=== PATIENT | male | born 1945 | race Caucasian/White ===

== ENCOUNTER 2019-09-06 | Day surgery (SDC) | payer MEDICARE, OTHER ==
[~2019-09-06] MED LIST: ALLERGY RE50 MCG/ACT; ALLOPURINOL100 MG PO; AMITRIPTYLIN10 MG PO; AMOXICILLIN/CL875 MG OR; AMOXICILLIN/PO500 MG PO; ASPIRIN LOW81 M1 PO; CALCIUM600 M1 PO; CARDIZEM CD 180 PO; DILTIAZEM180 M1 PO; DILTIAZEM240 M1 OR; DIOVAN160 MG PO; DYMISTA1 SPR; FAMOTIDINE20 M1 PO; FENOFIBRATE134 MG PO; FISH OIL1000 MG PO; FISH OIL1200 M1 PO; FLONASE NASAL50 MCG; HYDROCHLOROT12.5 MG PO; LISINOPRIL10 MG PO; LOPID600 MG PO; LYRICA50 MG; MEDDOSEPAK OR; METOPROL TAR25 MG PO; MONTELUKAST SOD10 MG PO; MULTI VIT PO; NAPROSYN500 MG PO; PRILOSEC20 MG PO; PROBIOTIC1 TAB PO; PROSCAR PO; RESTASIS0.05 % OP; SEPTRA DS1 TAB PO; SYNTHROID75 MCG PO; TAMSULOSIN0.4 MG PO; TRICOR145 MG PO; UROXATRAL10 MG PO; VITAMIN D32000 UNIT PO; ZOCOR20 MG PO; [UNRECOGNIZED DRUG - OTHER] EX
[2019-09-06] MEDS ORDERED: PERCOCET1 TA4 PO (09:49)
== END 2019-09-06 10:30 | disposition home or self-care (01) ==
PROC: 0TBC8ZZ Excision of Bladder Neck, Via Natural or Artificial Opening Endoscopic (ICD-10-PCS; principal; 2019-09-06)
DX: N32.0 Bladder-neck obstruction (principal); I10 Essential (primary) hypertension; E78.5 Hyperlipidemia, unspecified; E03.9 Hypothyroidism, unspecified

== ENCOUNTER 2020-08-10 09:45 | Inpatient (IN) | payer MEDICARE, OTHER ==
[2020-08-10] VITALS (8 sets, daily range): BP systolic 161–189; BP diastolic 81–98
[~2020-08-10] VITALS: Ht 180.3 cm; Wt 121.3 kg
[~2020-08-10 09:45] MED LIST changes: +BENICAR20 MG PO; +CRESTOR5 MG PO; +PERCOCET1 TA4 PO
--- NOTE | 2020-08-10 15:45 | NUR ---
PT ARRIVED TO [facility] ROOM 277 VIA BED AT 1541 WITH OR STAFF; DROWSY AND OREINTED X 3; IN STABLE CONDITION. C/O 8/10 LEFT KNEE PAIN AND MILD NAUSEA. RESPIRATIONS EVEN AND UNLABORED ON ROOM AIR. SKIN IS FLUSHED AND MOIST. LACTATED RINGERS INFUSING UPON ARRIVAL INTO 20G IN RIGHT HAND; IV SITE APPEARS HEALTHY. SURGICAL DRESSING WITH NORMA WRAP TO LEFT KNEE IS CDI; ICE APPLIED. SCD INTACT TO RLE. IS AT BEDSIDE. ORIENTED TO ROOM AND CALL LIGHT SYSTEM. PLAN OF CARE DISCUSSED. PT ENCOURAGED TO VERBALIZE CONCERNS. SAFETY MEASURES IN PLACE. CALL LIGHT WITHIN REACH.
--- NOTE | 2020-08-10 16:53 | NUR ---
CARMENCITA DAILEY AT BEDSIDE FOR EVAL. AWARE OF ELEVATED BLOOD PRESSURE AND TROUBLE STARTING URINARY STREAM; PT REPOSITIONED.
--- NOTE | 2020-08-10 17:12 | NUR ---
PATIENT MEDICATED FOR PAIN AT THIS TIME PATIENT STATES HIS PAIN LEVEL IS A 8 OUT OF 0-10 PAIN SCALE. PATIENT GIVEN OXYCODONE 10/325MG AT THIS TIME.
--- NOTE | 2020-08-10 20:00 | NUR ---
PATIENT RESTING IN BED AT THIS TIME WITH HOB SLIGHTLY ELEVATED. PATIENT IS AWAKE ALERT AND ORIENTEDX3. PATIENT WITH ELEVATED BP AND C/O POST0-OP PAIN. MEDICATED WITH DILAUDID 1MG IVP FOR PAIN. IVF LR PATENT AND INFUSING VIA RIGHT WRIST SITE. DRESSING TO LEFT KNEE INTACT AND SECURED WITH NORMA WRAP. CMS TO LEFT TOES WNL. ICE PACK TO LEFT KNEE ON AND OFF INSTRUCTED-20MIN ON 20 MIN OFF. PATIENT VOIDED 200 CC OF YELLOW URINE IN URINAL AT BEDSIDE. INSTRUCTED ON U SE OF IS Q1H WHILE AWAKE. WILL REINFORCE. PATIENT WITH SMALL EMESIS OF CLEAR FLUID-MEDICATED WITH ZOFRAN FOR VOMITTING. SAFETY PRECAUTIONS REINFORCED. CALL LIGHT IN REACH. WILL CONT TO MONITOR.
--- NOTE | 2020-08-10 22:15 | NUR ---
PATIENT RESTING IN BED AT THIS TIME-AWAKE ALERT AND ORIENTEDX3. IVF LR PATENT AND INFUSING AT 100CC/HR VIA RIGHT WRIST. JUST PRIOR TO ADMINISTRATION OF HS MEDSPATIENT VOMITTED 100CC OF BRIGHT RED BLOOD WITH SOME SMALL CLOTS NOTED. MEDICATION WERE HELD AND DR. GRIFFIN WAS CALLED REGUARDING THIS EPISODE. NEW ORDERS WERE RECIEVED AND PATIENT WAS MADE NPO. STAT H&H WAS DRAWN. SPEC WAS SENT TO LAB AND WAS POSITIVE FOR BLOOD. PATIENT WAS MEDICATED WITH DILAUDID 1MG IVP FOR POST-OP PAIN. PATIENT TO BE STARTED ON PROTONIX GTT SOON PROFILED ON EMAR. PATIENT NOTIFIED OF CHANGES IN TREATMENT AND NEW ORDERS. CALL LIGHT IN REACH. WILL CONT TO MONITOR.
[2020-08-10 22:23] LABS: HEMATOCRIT 38.3 % (39.0-50.0); HEMOGLOBIN 13.6 g/dl (14.0-18.0)
[2020-08-11] VITALS (12 sets, daily range): BP systolic 96–155; BP diastolic 43–85
--- NOTE | 2020-08-11 | NUR ---
PATIENT IS HAVING DIFFICULTY WITH VOIDING AT THIS TIME. BLADDER SCAN WAS DONE AND WAS 766CC. ATTEMPTED TO INSERT #16 LITHUANIAN JOHN CATH BUT MET RESISTANCE EVEN THOUGH THERE WAS A SMALL AMT OF CALEB URINE THAT DID DRAIN, WHEN ATTEMPTED TO INFLATE THE BALLON THE PATIENT HAD SEVERE PAIN AND THE CATH WAS REMOVED-DRAINED 100CC OF CALEB URINE. ATTEMPT WAS MADE BY JASON CASTILLO TO INSERT #16 LITHUANIAN JOHN CATH AND ALSO MET RESISTANCE AND HAD PAIN WHEN ATTEMPTED TO INFLATE THE BALLON. DRAINED AN ADDITIONAL 250CC OF URINE FOR TOTAL OUTPUT OF 350CC AT THIS TIME. NO FURTHER VOMITTING AT THIS TIME. CALL LIGHT IN REACH. WILL CONT TO MONITOR.
[2020-08-11 04:17] LABS: HEMATOCRIT 33.3 % (39.0-50.0); HEMOGLOBIN 11.7 g/dl (14.0-18.0)
--- NOTE | 2020-08-11 04:30 | NUR ---
CALLED TO PATIENT ROOM AFTER RESPONDING TO CALL LIGHT. PATIENT VOMITTING AGAIN BRIGHT RED BLOOD WITH SOME SMALL CLOTS NOTED-200CC. LAB HERE AND STAT 0400 H&H DRAWN. PATIENT WAS MEDICATED FOR VOMITTING WITH ZOFRAN. H&H RESULTS-11.7/33.3-DROP SINCE [address] GRIFFIN CALLED AND NEW ORDERES RECIEVED. PATIENT TYPE AND SCREENED FOR 2UNITS OF PRBC'S. ON HOLD FOR NOW. REPEAT H&H FOR 629. CONSULT CALLED TO DR. FUCHS-PLAN FOR ENDOSCOPY [place] [place] [facility] NOTIFIED OF UPCOMING PROCEDURE THIS MORNING. PATIENT MADE AWARE OF UPCOMING PLANS. CALL LIGHT IN REACH. WILL CONT TO MONITOR.
--- NOTE | 2020-08-11 06:02 | NUR ---
ANTIBIOTIC THERAPY COMPLETE AT THIS TIME. IV FLUSHED W/NS, SITE APPEARS HEALTHY TO LAC. PT DENIES ANY OTHER NEEDS.
--- NOTE | 2020-08-11 06:11 | NUR ---
#16 CONGOLESE COUDE INSERTED BY JASON CASTILLO WITH SOME RESISTANCE DRAINING YELLOW URINE-450CC OF URINE EMPTIED PATIENT RESTING IN BED. SALINE LOCK TO LEFT AC INTACT. IVF LR PATENT AND INFUSING VIA RIGHT WRIST. PROTONIX GTT INFUSING VIA RIGHT WRIST SITE AT 10CC/HR. DRESSING TO LEFT KNEE INTACT SECURED WITH NORMA WRAP. SCD TO RIGHT LEG INTACT. SAFETY PRECAUTIONS REINFORCED. CALL LIGHT IN REACH. WILL CONT TO MONITOR. AWAITING GI PROCEDURTE THIS MORNING,
[2020-08-11 06:44] LABS: HEMATOCRIT 30.8 % (39.0-50.0); HEMOGLOBIN 10.8 g/dl (14.0-18.0)
[2020-08-11 09:07] LABS: HEMATOCRIT 28.9 % (39.0-50.0); HEMOGLOBIN 10.1 g/dl (14.0-18.0)
--- NOTE | 2020-08-11 09:45 | NUR ---
PATIENT RETURNED FROM SURGERY AT THIS TIME. PAITENT ALERT AND ORINETED X 3 PAITENT STATES PAIN LEVEL IS A 3 PATIENT IS ONE DAY POST OP OF L KNEE DRESSING DRY AND INTACT AT THIS TIME. PATIENT RETURNED FROM OPERATING ROOM FOR EDG. OR NURSE LIANG STATED THAT PATIENT WAS GIVEN ZOFRAN FOR NAUSEA AND PATIENT STATES NAUESA IS CAUSED BY POST NASAL DRIP. PATIENT ENCOURAGE TO LEAVE HEAD OF BED UP AND CALL OUT IF HE WERE TO HAVE ANY VOMITING OF BLOOD.
--- NOTE | 2020-08-11 11:30 | NUR ---
PER ASIM SLOAN APRN HOLD ON TRANFUSION OF BLOOD AT THIS TIME. WILL CONTINUE TO MONITOR.
--- NOTE | 2020-08-11 14:00 | NUR ---
PATIENT IV FOUND DISLODGED AT THIS TIME. IV CATH TIP INTACT AND SITE CLEANED AND 2X2 AND TAPE APPLIED AT THIS TIME. PATIENT HAS IV SITE IN LEFT AC AT THIS TIME.
[2020-08-11 15:25] LABS: HEMATOCRIT 26.4 % (39.0-50.0); HEMOGLOBIN 9.3 g/dl (14.0-18.0)
--- NOTE | 2020-08-11 15:29 | NUR ---
PATIENT MEDICATED AT THIS TIME WITH PERCOCET 10/325MG FOR PAIN IN L KNEE AND STATED PAIN IS 6 OUT OF A PAIN SCALE OF 0-10. PATIENT REPOSITIONED AT THIS TIME. ICE APPLIED TO L KNEE.
--- NOTE | 2020-08-11 16:13 | NUR ---
PATIENT RESTING IN BED AT THIS TIME DENIES ANY NEEDS AT THIS TIME. JOHN IS PATENT AND DRAINING CALEB COLOR URINE. PTIENT L KNEE ELEVATED AT THIS TIME SCD'S IN PLACE CALL LIGHT WITHIN REACH.
--- NOTE | 2020-08-11 20:00 | NUR ---
PATIENT RESTING IN BED AT THIS TIME-AWAKE ALERT AND ORIENTEDX3. PATIENT WITH O2 VIA NASAL CANNULA IN PLACE. IVF LR PATENT AND INFUSING VIA LEFT AC SITE AT 100CC/HR-SITE IS HEALTHY AT TH IS TIME. JOHN CATH PATENT AND DRAINING CALEB URINE. ENCOURAGED USE OF IS AND PATIENT IS ABLE TO DEMONSTRATE PROPER USE OF THE DEVICE. SCD TO RLE IN PLACE. DRESSING TO LEFT KNEE INTACT AND SECURED WITH NORMA WRAP. PATIENT IS USING ICE PACKS ON AND OFF TO LEFT KNEE. PATIENT WITH NO COMPLAINTS AT THIS TIME. SAFETY PRECAUTIONS REINFORCED. CALL LIGHT IN REACH. WILL CONT TO MONITOR.
[2020-08-11 20:56] LABS: HEMATOCRIT 26.5 % (39.0-50.0); HEMOGLOBIN 9.3 g/dl (14.0-18.0)
--- NOTE | 2020-08-11 22:00 | NUR ---
H&H FROM 21OO UNCHANGED FROM EARLIER AT 9.3. PATIENT MEDICATED FOR POST-OP PAIN WITH DILAUDID 1MG IVP FOR PAIN. PATIENT TOOK HS MEDS WITH SIP OF H20 WITHOUT ANY DIFFICULTY. NO COMPLAINTS OF NAUSEA AT THIS TIME. PATIENT WITH HOME C[facility] AT [facility] FOR USE TONIGHT WHEN SLEEPING. CALL LIGHT IN REACH. WILL CONT TO MONITOR.
--- NOTE | 2020-08-11 23:35 | NUR ---
PATIENT RESTING IN BED-STILL WITH POST-OP PAIN TO LEFT KNEE. PATIENT MEDICATED WITH PERCOCET TABS 2 FOR LEFT KNEE PAIN. C-PAP IN USE. JOHN PATENT AND DRAINING CALEB URINE. IVF PATENT AND INFUSING VIA LEFT AC SITE AT 100CC/HR. CALL LIGHT IN REACH. WILL CONT TO MONITOR.
[2020-08-12] VITALS (9 sets, daily range): BP systolic 113–156; BP diastolic 64–77
--- NOTE | 2020-08-12 00:30 | NUR ---
PATIENT APPEARS SLEEPING AT THIS TIME WITH HOB SLIGHTLY ELEVATED AND C-PAP IN PLACE. RESP ARE EVEN AND UNLABORED AT THIS TIME. IVF LR PATENT AND INFUSING VIA LEFT AC IV SITE AT 100CCHR. SITE IS HEALTHY. JOHN CATH PATENT AND DRAINING CALEB URINE. LEFT KNEE DRESSING INTACT AND SECURED WITH NORMA WRAP. USING ICE PACK TO LEFT KNEE ORDERED ON AND OFF. SCD TO RLE IN PLACE. CALL LIGHT IN REACH. WILL CONT TO MONITOR.
[2020-08-12 03:04] LABS: HEMATOCRIT 23.9 % (39.0-50.0); HEMOGLOBIN 8.3 g/dl (14.0-18.0)
--- NOTE | 2020-08-12 07:22 | NUR ---
RECIEVED CALL FROM DR. STODDARD STATING THAT HE WANTED PATIENT TO BE NPO FOR NOW UNTIL AFTER 0900 H&H RESULTS WERE BACK IN CASE HE MOIGHT HAVE TO RESCOPE THE PATIENT IN ENDO. ONCOMING NURSE MAREK CASTILLO IS AWARE AND ORDER WAS PLACED. WILL CONT TO MONITOR.
--- NOTE | 2020-08-12 07:25 | NUR ---
PATIENT IN BED AT THIS TIME DENIES ANY NEEDS STATES HIS PIAN IN A 3 OUT OF A SCALE OF 0-10 PATIENT STATES HE NEEDS NO PAIN MEDICATION AT THIS TIME. SIDERAILS ARE UP CALL LIGHT WITHIN REACH L KNEE DRESSING DRY AND INTACT AT THIS TIME.
[2020-08-12 10:17] LABS: HEMATOCRIT 23.9 % (39.0-50.0); HEMOGLOBIN 8.2 g/dl (14.0-18.0)
--- NOTE | 2020-08-12 12:15 | NUR ---
PATIENT IN BED DENIES NEEDS AT THIS TIME CALL LIGHT WITHIN REACH. SIDERAILS UP X 2 . L KNEE DRESSING DRY AND INTACT.
--- NOTE | 2020-08-12 14:00 | NUR ---
PATIENT ORDERED TO HAVE 1 UNIT OF PACKED RED BLOOD CELLS. PREVIOUS PATIENT CONSENT OBTAINED. PATIENT EDUCATED ON TRANSFUSION AND ADVERSES SIDE EFFECTS. PATIENT VERBALIZES UNDERSTANDING AT THIS TIME. PATIENT ADVISED AT ANYTIME BLOOD IS TRANSFUSING PATIENT BEGINS TO FEEL SHORT OF BREATH OR PAIN TO IMMEDIATELY CALL FOR NURSE AND WAS INSTRUCTED ON HOW TO USE CALL LIGHT. PATIENT AGAIN VERBALIZES UNDERSTANDING.
--- NOTE | 2020-08-12 14:15 | NUR ---
PATIENT BLOOD TRANSFUSION BEGAN AT THIS TIME. VITAL SIGNS TAKEN; TEMP; 98.7 PULSE; 84 RESPIRATIONS; 18 B/P 128/64 SPO2
--- NOTE | 2020-08-12 15:35 | NUR ---
PATIENT RECIEVING BLOOD TRANSFUSION WHICH STARTED AT 1415 AND AT THAT TIME VITALS WERE AT START: TEMP; 98.7 PULSE; 84 RESPIRATION 18 B/P 128/64. VITAL SIGNS AT 1450 WERE: TEMP 98.7 PULSE; 92 RESPIRATION;18 B/P 121/68. VITAL SIGNS AT 1535 ARE TEMP; 98.7 PULSE; 92 RESPIRATIOINS; 18 B/P 138/65. PATIENT TOLERATING INFUSION WITHOUT ANY REACTIONS AND IS RESTING WITH NO COMPLAINTS AT THIS TIME.
--- NOTE | 2020-08-12 16:19 | NUR ---
PT note Patient seen again in the P. I was reviewing his HEP. I instructed him in increased mobilization. The patient has a strong tendency to hold the leg in a flexed position and a strong tendency to immobility due to pain with movement. I went over quad sets and heel slides in detail. His nurse entered to hang Hgb. So I deferred OOB in PM until AM but did encourage him to continnue HEP every hour. Am Pac is 11 indicating he would hillary in short term rehab due to his immobility. I expect he will do better in AM
--- NOTE | 2020-08-12 16:30 | NUR ---
BLOOD TRANSFUSION DONE AT THIS TIME ENDING VITAL SIGNS ARE TEMP; 98.5 PULSE; 94 RESPIRATIONS;18 AND B/P 127/77. PATIENT DENIES ANY NEEDS AT THIS TIME. PATIENT LAYING IN BED AND RE-EDUCATED REGARDING PT EXERCISES FOR MOBILITY FOR KNEE. PATIENT IS RESISTANT IN DOING EXERCISES AND STATES HE "JUST CAN'T LIFT MY LEG VERY WELL". PATIENT ENCOURAGED TO CONTINUE TO TRY AND DO EXERCISES GIVEN BY PHYSICAL THERAPY AND IF PAIN MEDICATION IS NEEDED TO CALL NURSE.
--- NOTE | 2020-08-12 17:31 | NUR ---
L. KNEE DRESSING CHANGED AT THIS TIME. INCISION LINE APPROXIMATE AND NO SIGNS OF INFECTION AT THIS TIME. PATIENT INCISIONS LINE HAS 28 CONOR AND INTACT. INCISION LINE CLEANED WITH NORMAL SALINE AND TWO TELFA PADS APPLIED AND ONE ABD PAD TO COVER AND NEW NORMA WRAP APPLIED. PATIENT TOLERATED DRESSING CHANGE WITHOUT ANY PAIN AT THIS TIME.
--- NOTE | 2020-08-12 20:00 | NUR ---
PATIENT RESTING IN BED WITH HOB ELEVATED-AWAKE ALERT AND ORIENTEDX3.PATIENT WITH NO COMPLAINTS AT THIS TIME. IV SITE TO LAC INTACT WITH IVF LR PATENT AND INFUSING AT 100CC/HR. SITE IS HEALTHY. DRESSING TO LEFT KNEE INTACT-SECURED WITH NORMA WRAP. SCD TO RLE. JOHN CATH PATENT AND DRAINING CALEB URINE. ENCOURAGED USE OF IS Q1H WHILE AWAKE. PATIENT IS ABLE TO DEMONSTRATE PROPER USE OF THE DEVISE. USING ICE PACK TO LEFT KNEE ON AND OFF ORDERED. CALL LKIGHT IN REACH. WILL CONT TO MONITOR.
--- NOTE | 2020-08-12 21:00 | NUR ---
PATIENT RESTING IN BED-PROVIDED WITH HS MEDS INCLUDING MIRALAX-NO BM SINCE OR ON MONDAY. P;ATIENT STATES THAT HE IS PASSING FLATUIS BUT NO BM YET. PROVIDED WITH HS SNACK. CALL LIGHT IN REACH. WILL CONT TO MONITOR.
--- NOTE | 2020-08-13 | NUR ---
PATIENT MAX ASSIST USING WALKER TO BSC TO PASS MODERATE AMT OF FLATUS-NO STOOL YET. PATIENT MAX ASSIST BACK TO THE BED USING THE WALKER AND VERBAL CUES. IVF LR REMAINS PATENT AND INFUISING AT 100CC/RHR. SITE IS HEALTHY. JOHN PATENT AND DRAINING CALEB URINE. PATIENT USING HOME C-PAP WITH HOB SLIGHTLY ELEVATED. SAFETY PRECAUTIONS REINFORCED. CALL LIGHT IN REACH. WILL CONT TO MONITOR.
[2020-08-13 00:34] VITALS: BP 140/86
[2020-08-13 03:56] VITALS: BP 155/90
[2020-08-13 05:22] LABS: HEMATOCRIT 24.2 % (39.0-50.0); HEMOGLOBIN 8.3 g/dl (14.0-18.0); MEAN CELL VOLUME 90.6 fL CALC (80.0-100.0); MEAN CORPUSCULAR HGB 31.1 pG CALC (26.0-32.0); MEAN CORPUSCULAR HGB CONC 34.3 g/dL CAL (32.0-36.0); RED BLOOD COUNT 2.67 mill/uL (4.70-6.10); RED CELL DISTRI WIDTH 12.6 % (11.5-15.5)
--- NOTE | 2020-08-13 05:32 | NUR ---
PATIENT APPEARS SLEEPING WITH C-PAP IN PLACE AND HOB SLIGHTLY ELEVATED. RESP ARE EVEN AND UNLABORED. JOHN PATENT AND DRAINING CALEB URINE. IVF PATENT AND INFUSING AT 100CC/HR VIA LEFT AC SITE. DRESSING TO LEFT KNEE IS INTACT AND SECURED WITH NORMA WRAP. CALL LIGHT IN REACH. WILL CONT TO MONITOR.
[2020-08-13 05:48] LABS: ANION GAP 5 (6-22 (CALC)); BUN 11 mg/dL (8-23); BUN/CREATININE RATIO 13 (12-20 (CALC)); CARBON DIOXIDE 29 mmol/l (22-30); CHLORIDE 104 mmol/l (95-108); CREATININE 0.9 mg/dL (0.7-1.3); GFR > 60 ML/MIN (>=60 (CALC)); GFR FOR AFR.AMER. > 60 ML/MIN (>=60 (CALC)); POTASSIUM 3.9 mmol/l (3.5-5.1); SODIUM 134 mmol/l (137-146)
--- NOTE | 2020-08-13 09:00 | NUR ---
PT NAUSEATED WITH BREAKFAST. PT SEEN LATER BY DR GRIFFIN, DIET CHANGED TO FULL LIQUID.
--- NOTE | 2020-08-13 10:10 | NUR ---
AM TX- PT WAS SEEN FOR TDA, GT AND THEREX. SUPINE>SIT REQUIRED MIN A, SIT>STAND W/ MOD A AND VERBAL CUES. PT WAS INSTRUCTED TO WEIGHT SHIFT L<>R PRIOR TO AMBULATION W/ RW. PT WAS ANXIOUS AND REPORTS FEELING NAUSEOUS DURING THE TX. HE AMBULATED W/ PARTIAL FOOT LIFT OFF, ALMOST DRAGGING R FOOT COMPLAINING OF L KNEE PAIN. PT AMBULATED IN A VERY SLOW PACE WITH RW TO GET TO THE OTHER SIDE OF THE BED AND SIT IN THE RECLINER. STAND>SIT REQUIRED CONSTANT VERBAL CUEING AND SBA. PT SAT DOWN GRACEFULLY. ONCE SEATED, PT WAS INSTRUCTED TO PERFORM THEREX SUCH ANKLE PUMPS, TOE CURLS, HEEL SLIDES TOLERATED AND QUADS ISOMETRICS X 7 SEC HOLD X 5 MINS. PT PERFORMED ALL EXERCISES CORRECTLY. LEFT PT COMFORTABLY SITTING IN THE RECLINER WITH CALL ACEVES BESIDE HIM. NO ADVERSE REACTIONS NOTED OR REPORTED AT THE END OF TX. PT REQUESTED FOR ICE PACK, RELAYED REQUEST TO MS. ZAVALA AT THE NURSING STN. [facility]: 12 POINTS PT WILL BENEFIT FROM IRF TO CONTINUE TRAINING FOR SAFE TRANSFERS AND AMBULATION W/ RW.
[2020-08-13 10:54] LABS: HEMATOCRIT 25.4 % (39.0-50.0); HEMOGLOBIN 8.9 g/dl (14.0-18.0)
--- NOTE | 2020-08-13 12:52 | NUR ---
PATIENT PERFORMED TRANSFER FROM RECLINER TO BED USING WALKER, REQUIRES VERBAL CUES AND SAFE SEQUENCING FOR YFH-UG-NESOD TO WALKER. BED MOBILITY (SCOOTING, SIT <> SUPINE), MIN-A DUE TO WEAKNESS AND PAIN ON L KNEE. PATIENT STILL HAS DIFFICULTY PUTTING WEIGHT ON LLE DURING STANDING AND WALKING 5 FEET USING WALKER DUE TO PAIN AND EXTENSION LAG, DEMONSTRATED ANTALGIC GAIT. AMPAC = 12
--- NOTE | 2020-08-13 13:00 | NUR ---
PHYSICAL THERAPY HAS WORKED WITH PT IN ROOM. BLOOD DRAWS SHOW ELEVATING H/H, PT AWARE. MOM PROVIDED, PT STATES THAT HE IS PASSING GAS.
[2020-08-13 15:36] VITALS: BP 138/79
[2020-08-13 19:10] VITALS: BP 136/75
--- NOTE | 2020-08-13 19:40 | NUR ---
1939-PT STABLE AT TIME OF ASSESSMENT. SKIN INTACT. SURGICAL WOUND APPROXIMATED NO S/S OF INFECTION. NEW DRESSING APPLIED. PT TOLERATED WELL. PT DOES VERBALIZE PAIN IN THE KNEE AND A HEADACHE. BED LOW AND LOCKED, CALL LIGHT AND PHONE WITHIN REACH. PT STABLE. WILL CONTINUE TO MONITOR.
--- NOTE | 2020-08-14 02:12 | NUR ---
0150-PT LYING IN BED ASLEEP. NO S/S OF DISTRESS. BED LOW AND LOCKED. CALL LIGHT AND PHONE WITHIN REACH. PT STABLE. WILL CONTINUE TO MONITOR.
[2020-08-14 04:25] VITALS: BP 141/87
[2020-08-14 06:14] LABS: HEMATOCRIT 24.6 % (39.0-50.0); HEMOGLOBIN 8.3 g/dl (14.0-18.0); MEAN CELL VOLUME 91.1 fL CALC (80.0-100.0); MEAN CORPUSCULAR HGB 30.7 pG CALC (26.0-32.0); MEAN CORPUSCULAR HGB CONC 33.7 g/dL CAL (32.0-36.0); RED BLOOD COUNT 2.7 mill/uL (4.70-6.10); RED CELL DISTRI WIDTH 12.5 % (11.5-15.5)
--- NOTE | 2020-08-14 06:24 | NUR ---
0615-PT LAYING IN BED, PERCOCET PROVIDED PT COMPLAINS OF DISCOMFORT. NO S/S OF DISTRESS. BED LOW AND LOCKED, CALL LIGHT WITHIN REACH. PT STABLE, WILL CONTINUE TO MONITOR.
[2020-08-14 06:29] LABS: ALKALINE PHOSPHATASE 35 u/l (38-126); ANION GAP 9 (6-22 (CALC)); BILIRUBIN, TOTAL 0.5 mg/dL (0.0-1.4); BUN 10 mg/dL (8-23); BUN/CREATININE RATIO 11 (12-20 (CALC)); CARBON DIOXIDE 28 mmol/l (22-30); CHLORIDE 102 mmol/l (95-108); CREATININE 0.9 mg/dL (0.7-1.3); GFR > 60 ML/MIN (>=60 (CALC)); GFR FOR AFR.AMER. > 60 ML/MIN (>=60 (CALC)); POTASSIUM 3.9 mmol/l (3.5-5.1); SGOT/AST 30 u/l (19-48); SODIUM 135 mmol/l (137-146)
[2020-08-14 06:32] LABS: ALBUMIN 2.8 g/dL (3.2-5.0); TOTAL PROTEIN 5.1 g/dL (6.3-8.2)
[2020-08-14 07:51] VITALS: BP 147/83
--- NOTE | 2020-08-14 07:51 | NUR ---
RECIEVED REPORT FROM JONATHAN WHEAT. PT RESTING IN SEMI FOWLERS POSITION UPON ENTERING ROOM. INTRODUCED SELF TO PT AND DISCUSSED POC. PT IS A/O X3. ASSESSMENT AND VITALS COMPLETED. BP 147/83, HR 98, O2 94% ON ROOM AIR. RESPPIRATIONS ARE EVEN AND UNLABORED ON ROOM AIR. HEART RHYTHM NORMAL . BOWEL SOUNDS ARE ACTIVE IN ALL QUADRANTS, LAST REPORTED BM 08/10/2020. MIRLAX OFFERED, PT REFUSED. RADIAL AND PEDAL PULSES ARE STRONG.#20G IN LAC RUNNING WITH IVF PER ORDER, SITE APPEARS HEALTHY AND PATENT. PT COMPLAINS OF 5/10 PAIN. PERCOCET TO BE ADMINISTERED. CATHATER REMAINS IN PLACE, TUBING UNKINKED FLOWING WITH GRAVITY. PT DENIES ANY OTHER PAINS OR DISCOMFORTS. ALL SAFETY PRECAUTIONS ARE IN PLACE WITH CALL LIGHT IN REACH. WILL CONTINUE TO MONITOR
--- NOTE | 2020-08-14 09:18 | NUR ---
DR GRIFFIN AT BEDSIDE
--- NOTE | 2020-08-14 09:33 | NUR ---
PT AT BEDSIDE
--- NOTE | 2020-08-14 10:44 | NUR ---
REMOVABLE PROSTHODONTIST AT BEDSIDE
--- NOTE | 2020-08-14 11:28 | NUR ---
PT Note Patient supine as entered room, agreed to participate in therapy session. Supine>sit(MIN A), slight help w/ lle as clears bedside. Sit>sstand,(MOD a) VC for correct hand placement as he ascends to a standing position. Ambulated to bathroom, stand>sit onto commode, VC for correct hand placement as he descends to a seated position. Sit>stand(MIN A), ambulated to bed FWW. small daniela, hesitant to weight bear on lle. stand>sit(MIN A), sit>supine(MOD A) to clear lle over bed side. Tray table and call gabriel by patient side as exited room. applied roxanne to lle knee.
--- NOTE | 2020-08-14 12:00 | NUR ---
PT RESTING IN SMI FOWLERS POSITION. RESPIRATIONS ARE EVEN AND UNLABORED ON ROOM AIR. IVF D/C PER ORDER, SITE APPEARS HEALTHY AND PATENT. JOHN CATHATER IN PLACE, TUBING UNOBSTRUCTED. PT DENIES ANY NEEDS AT THIS TIME. ALL SFAETY PRECAUTIONS ARE IN PLACE WIHT CALL LIGHT IN REACH. WILL CONTINUE TO MONITOR
--- NOTE | 2020-08-14 14:18 | NUR ---
PT COMPLAINS OF 7/10 HEADH ACHE AND NAUSEA. PERCOCET AND ZOFRAN ADMINISTERED. RESPIRATIONS REMAINS EVEN AND UNLABROED ON ROOM AIR.JOHN CATHATER IN PLACE, 600 OF YELLOW URINE. PT DENIES ANY NEEDS AT THIS TIME. ALL SAFETY PRECAUTIONS ARE IN PLACE WITH CALL LIGHT IN REACH. WILL CONTINUE TO MONITOR
--- NOTE | 2020-08-14 14:52 | NUR ---
REASSESSMENT OF PAIN AT THIS TIME.RESULTING IN 12/05. RESPIRATIONS REMAINS EVEN AND UNLABORED. JOHN CATHATER IN PLACE.PT DENIES ANY NEEDS. ALL SAFETY PRECAUTIONSA RE IN PLACE WIHT CALL LIGHT IN REACH. WILL CONTINUE TO MONITOR
[2020-08-14 15:00] VITALS: BP 128/79
--- NOTE | 2020-08-14 16:00 | NUR ---
PT. NOTE Enteed room patient supine, agreed to participate in therapy session. Supine>sit (independant), sit>stand (MIn-Mod A) vc for correct hand placement as he ascends to a standing position. Ambulated w/ FWW through out room, hesitant for weight bearing to lle, small daniela and shirt stride, as he ambualted more patient became more confident w/ gait training. Stand>sit (Independant). sit>supine (MIN A) to clear lle over bed side. Bed mobility(independant). Applied ice packs to lle as exited room. Tray table and call gabriel by patient bed side as exited room. [facility] ^ of 10
--- NOTE | 2020-08-14 16:31 | NUR ---
DRESSING TO LEFT KNEE CHANGED AT THIS TIME. GUAZE AND TEGADERM APPLIED WITH NORMA WRAP APPLIED. PT TOELRATED WELL.
[2020-08-14 19:10] VITALS: BP 135/76
[2020-08-15 04:05] VITALS: BP 141/79
[2020-08-15 05:02] LABS: HEMATOCRIT 26.1 % (39.0-50.0); HEMOGLOBIN 8.8 g/dl (14.0-18.0); MEAN CELL VOLUME 92.2 fL CALC (80.0-100.0); MEAN CORPUSCULAR HGB 31.1 pG CALC (26.0-32.0); MEAN CORPUSCULAR HGB CONC 33.7 g/dL CAL (32.0-36.0); RED BLOOD COUNT 2.83 mill/uL (4.70-6.10); RED CELL DISTRI WIDTH 12.9 % (11.5-15.5)
[2020-08-15 05:23] LABS: ALKALINE PHOSPHATASE 39 u/l (38-126); ANION GAP 11 (6-22 (CALC)); BILIRUBIN, TOTAL 0.7 mg/dL (0.0-1.4); BUN 10 mg/dL (8-23); BUN/CREATININE RATIO 12 (12-20 (CALC)); CARBON DIOXIDE 28 mmol/l (22-30); CHLORIDE 101 mmol/l (95-108); CREATININE 0.9 mg/dL (0.7-1.3); GFR > 60 ML/MIN (>=60 (CALC)); GFR FOR AFR.AMER. > 60 ML/MIN (>=60 (CALC)); POTASSIUM 3.8 mmol/l (3.5-5.1); SGOT/AST 31 u/l (19-48); SODIUM 136 mmol/l (137-146); TOTAL PROTEIN 5.4 g/dL (6.3-8.2)
[2020-08-15 08:25] VITALS: BP 140/85
--- NOTE | 2020-08-15 08:25 | NUR ---
PT RESTING IN BED, NO SIGNS OF DISTRESS NOTED, RESP EVEN AND UNLABORED. PT VOICES NO NEEDS OR COMPLAINTS AT THIS TIME. DISCUSSED POC, DRESSING TO L KNEE CDI, SCD'S, ENCOURAGED IS, VSS, MEDICATED PER MAR, ENCOURAGED PT TO SIT IN RECLINER, ASSESSMENT COMPLETED, CALL LIGHT IN REACH,CONTINUE TO MONITOR.
[2020-08-15 08:34] VITALS: BP 140/85
--- NOTE | 2020-08-15 11:33 | NUR ---
PT SHOWERED, LINENS CHANGED, L KNEE INCISION INTACT WITH CONOR, CDI HEAD START DIRECTOR. PT USING INCENTIVE SPIROMETER. CALL LIGHT IN REACH,CONTINUE TO MONITOR.
[2020-08-15] MEDS ORDERED: TAMSULOSIN HCL0.4 MG PO (12:20)
[2020-08-15] MEDS ORDERED: ENOXAPARIN40 MG/0.1 SC (12:20)
[2020-08-15] MEDS ORDERED: SENNA-PLUS1 TAB PO (12:21)
[2020-08-15] MEDS ORDERED: BISACODYL10 M2 PR (12:21)
[2020-08-15] MEDS ORDERED: PROTONIX40 M2 PO (12:22)
[2020-08-15] MEDS ORDERED: PERCOCET1 TA4 PO (12:22)
--- NOTE | 2020-08-15 13:33 | NUR ---
DISCUSSED DISCHARGE PLANS TO [facility], PT HAS NOT HAD A BM, DISCUSSED SUPPOSITORY, PT AGREES. CALL LIGHT IN REACH,CONTINUE TO MONITOR.
--- NOTE | 2020-08-15 15:30 | NUR ---
DISCUSSED DISCHARGE INSTRUCTIONS WITH PT, IV SITE REMOVED, CATHETER INTACT. DRILLER'S OFFSIDER TO ASSIST PT GET DRESSED AND PACKED UP FOR TRANSPORT. AWAITING [facility] TO FAMILY INTERVENTION SPECIALIST PT, CALL LIGHT IN REACH,CONTINUE TO MONITOR.
--- NOTE | 2020-08-15 15:56 | NUR ---
Discharge instructions given. Patient verbalizes understanding of same. Discharged in stable condition via Wheelchair to [facility] with staff. All belongings sent with pt.
--- NOTE | 2020-08-15 16:00 | NUR ---
REPORT GIVEN TO HARSHAL AT R
== END 2020-08-15 15:56 | DRG 469 ==
LOC: ORM 09:45 → MS2 15:41 → ORM 16:00 → MS2 08-15 15:56
PROVIDERS: Nurse Practitioner; Nurse Practitioner Family; Orthopaedic Surgery; Surgery; ADMIT Internal Medicine; ATTEND Internal Medicine
PROC: 0SRD0JA Replacement of Left Knee Joint with Synthetic Substitute, Uncemented, Open Approach (ICD-10-PCS; principal; 2020-08-10)
PROC: 0DJ08ZZ Inspection of Upper Intestinal Tract, Via Natural or Artificial Opening Endoscopic (ICD-10-PCS; 2020-08-11)
PROC: 30233N1 Transfusion of Nonautologous Red Blood Cells into Peripheral Vein, Percutaneous Approach (ICD-10-PCS; 2020-08-12)
PROC: 0T9B70Z Drainage of Bladder with Drainage Device, Via Natural or Artificial Opening (ICD-10-PCS; 2020-08-13)
PROC: 30233N1 Transfusion of Nonautologous Red Blood Cells into Peripheral Vein, Percutaneous Approach (ICD-10-PCS; 2020-08-13)
DX: M17.12 Unilateral primary osteoarthritis, left knee (principal); K22.6 Gastro-esophageal laceration-hemorrhage syndrome; N99.89 Other postprocedural complications and disorders of genitourinary system; R33.8 Other retention of urine; I25.10 Atherosclerotic heart disease of native coronary artery without angina pectoris; I10 Essential (primary) hypertension; E78.5 Hyperlipidemia, unspecified; E03.9 Hypothyroidism, unspecified; G47.30 Sleep apnea, unspecified; K44.9 Diaphragmatic hernia without obstruction or gangrene; M10.9 Gout, unspecified; N40.0 Benign prostatic hyperplasia without lower urinary tract symptoms; Z20.828 Contact with and (suspected) exposure to other viral communicable diseases; Z79.899 Other long term (current) drug therapy; Z98.42 Cataract extraction status, left eye; Z98.41 Cataract extraction status, right eye; Z96.1 Presence of intraocular lens
CPT/HCPCS: J0131; J1100; J1650; J1756; P9016; S0164

== ENCOUNTER 2024-09-23 07:29 | Emergency (ER) | payer MEDICARE, OTHER ==
[~2024-09-23] VITALS: Ht 180.3 cm; Wt 112.0 kg
[~2024-09-23 07:29] MED LIST changes: +BISACODYL10 M2 PR; +ENOXAPARIN40 MG/0.1 SC; +PROTONIX40 M2 PO; +SENNA-PLUS1 TAB PO; +TAMSULOSIN HCL0.4 MG PO
[2024-09-23 07:39] VITALS: BP 154/94
[2024-09-23 08:07] VITALS: BP 152/91
[2024-09-23 08:31] VITALS: BP 153/99
[2024-09-23 08:55] VITALS: BP 153/99
== END 2024-09-23 08:58 | disposition home or self-care (01) ==
LOC: ED 07:29
DX: R19.5 Other fecal abnormalities (principal); K64.4 Residual hemorrhoidal skin tags; I10 Essential (primary) hypertension; Z90.49 Acquired absence of other specified parts of digestive tract